=== PATIENT | male | born 1970 | race Caucasian/White ===

== ENCOUNTER 2017-02-12 11:51 | Emergency (ER) | payer OTHER ==
[2017-02-12 14:34] LABS: HEMOGLOBIN 15.5 gm/dl (14.0-17.5); RED BLOOD COUNT 4.97 M/UL (4.20-5.50)
[2017-02-12 14:55] LABS: BUN/CREATININE RATIO 11 (0-10)
== END 2017-02-13 17:16 ==
LOC: ER1 11:51
PROVIDERS: Student in an Organized Health Care Education/Training Program
DX: F20.9 Schizophrenia, unspecified (principal); F17.210 Nicotine dependence, cigarettes, uncomplicated
CPT/HCPCS: 36415; 80053; 80307; 81001; 83735; 85025; 87086; 93005; 99285; G0480